=== PATIENT | female | born 1960 | race Caucasian/White ===

== ENCOUNTER 2018-03-27 09:23 | Emergency (ER) | payer BC, OTHER ==
[2018-03-27] MEDS ORDERED: Ketorolac Tromethamine 60 MG/2 ML VIAL ONE (09:47)
--- NOTE | 2018-03-27 11:39 | RAD ---
2 VIEW RIGHT HIP: Date: 03/27/18 INDICATION: Injury with pain. FINDINGS: There is no fracture or dislocation of the right hip. IMPRESSION: No acute osseous abnormality. POS: [facility]
== END 2018-03-27 10:48 | disposition home or self-care (01) ==
LOC: NAV ERS 09:23
DX: M79.651 Pain in right thigh (principal); E11.9 Type 2 diabetes mellitus without complications; F17.210 Nicotine dependence, cigarettes, uncomplicated; Z79.899 Other long term (current) drug therapy; Z79.84 Long term (current) use of oral hypoglycemic drugs
CPT/HCPCS: 96372; 99001; J1885